=== PATIENT | male | born 1955 | race Caucasian/White ===

== ENCOUNTER → 2020-09-04 | Outpatient (CLI) | payer OTHER ==
[~2020-09-04] MED LIST: AZITHROMYCIN 2250 MG PO; CIALIS5 MG PO; PREDNISONE 20 M20 MG PO; PROAIR HFA8.5 GM INH; PROSCAR 5MG TABL5 MG PO; PROTONIX40 M1 PO; ROSUVASTATIN CA10 MG PO; VALIUM5 MG PO
== END ==
LOC: LAB 12:14
PROVIDERS: ATTEND Ophthalmology
DX: Z01.812 Encounter for preprocedural laboratory examination (principal); Z20.822 Contact with and (suspected) exposure to COVID-19

== ENCOUNTER 2020-09-07 06:04 | Day surgery (SDC) | payer OTHER ==
[~2020-09-07] VITALS: Ht 175.3 cm; Wt 77.1 kg
--- NOTE | ~2020-09-07 | O ---
[facility] [place] [address] OPERATIVE REPORT Name: BRENTON WIGGINS Room #: 150-2 [facility]..#: [id number] Admission: 09/07/20 Attend Phys: Osvaldo Lopez MD Discharge: Date of : 53 Report #: [id number] THIS REPORT FOR: cc: Aurora Rock MD, Kandice L. MD White, William L. MD ~ DATE OF SERVICE: 09/07/2020 PREOPERATIVE DIAGNOSIS: Basal cell carcinoma of the right lower lid and medial canthus. POSTOPERATIVE DIAGNOSIS: Basal cell carcinoma of the right lower lid, medial canthus and upper lid. PROCEDURE: Excision of basal cell carcinoma of the right medial canthus, right lower lid and right upper lid with frozen section, control of margins, myocutaneous flap repair of defect with full-thickness skin graft. SURGEON: Osvaldo Lopez MD. AUTOMATIC MOUNTER: None. ANESTHESIA: MAC. COMPLICATIONS: None. INDICATIONS FOR SURGERY: This pleasant 65-year-old gentleman has a biopsy proven basal cell carcinoma that is in his medial right lower lid extending up through his medial canthus. He presents today for excision of the tumor with frozen sections and subsequent reconstruction of that defect. Informed consent was obtained to include but not limited to the potential risk for loss of vision, bleeding, infection, failure to improve the problem, and the potential need for further surgery or treatment. DESCRIPTION OF PROCEDURE: The patient was taken to the operating room where 2% Xylocaine with epinephrine mixed with equal parts 0.75% Marcaine with Wydase was administered transcutaneously to the right lower lid, the right medial canthus, right upper lid, the glabella and the bridge of the nose and the right lateral upper lid. The patient was then prepped and draped in the usual sterile fashion. The lesion was inspected and an incision outlined with a fine tip skin marking pen including 2-3 mm of normal appearing tissue around the entire lesion. This took it straight through the medial canthus and extended up onto the medial aspect of the right upper lid. The incisions were then made with a 15 blade and the deeper dissection accomplished with a Kathleen scissor. The specimen was then oriented on a drawing for the waiting pathologist as [address] [address] OPERATIVE REPORT Name: BRENTON WIGGINS Room #: 150-2 [facility]..#: [id number] Admission: 09/07/20 Attend Phys: Osvaldo Lopez MD Discharge: Date of : 53 Report #: [id number] hemostasis was achieved in the field with diligent pinpoint monopolar cautery. The pathologist snap froze that tissue and found that the medial aspect of the incision was still diffusely positive. An initial excision of 2-3 mm was then made across the entire medial portion of the wound. This extended it quite a bit up on to the upper eyelid. She snap froze that tissue and while she did see additional tumor, it was not on the margin. Attention was then turned to repair the defect. The defect was much larger than what it had been anticipated preoperatively. A 2 phase correction of the defect was then planned. A myocutaneous flap was then developed laterally to correct the right lower lid and medial canthal portion of the wound. The relaxing incision was then made in the infraciliary plane and hemostasis re-achieved. The flap was then advanced and secured with interrupted Vicryl sutures deep and then 6-0 plain gut sutures more superficially. This left a considerable defect in the upper eyelid. The decision was made to correct this defect with a full-thickness skin graft from the lateral most right upper lid. That defect was then outlined in the lateral right upper lid with a fine tip skin marking pen. A 15 blade was then used to make those incisions, following which a full-thickness skin graft was then harvested utilizing thin section techniques. Hemostasis was achieved in that donor bed with monopolar cautery. It was then closed with 6-0 chromic sutures and 6-0 plain gut sutures. The full thickness skin graft was then defatted. It was then secured into its bed in the right upper lid with cardinal bites of 7-0 Vicryl sutures followed by a final closure of 6-0 plain gut sutures. The wounds were then cleaned and dressed with erythromycin ointment. Stack Telfa pads that were cut were used medially as pledgets to hold the full-thickness skin graft down. A larger Telfa pad cut in the shape of an eye pad was placed followed by 2 eye pads, which were held in place with silk tape and Mastisol. The patient was then transported to the recovery area having tolerated the procedures well with no anesthetic or operative complications being noted. By: [id number] Osvaldo Lopez MD /chuckie
[2020-09-07 07:31] VITALS: BP 119/75
--- NOTE | 2020-09-08 17:07 | PATH ---
[facility] [address] [place] [address] PATHOLOGY RPT PROCEDURE Name: BRENTON WIGGINS Room #: DEP [facility].#: [id number] Admission: 09/07/20 Date of : 53 Discharge: 09/07/20 Report #: [id number] Path Case #: [id number] [facility] Accession Number: [id number] . 01 Material submitted: . PART A: lid - RIGHT LOWER LID AND MEDIAL CANTHUS- FS. Modifiers: right, lower, MEDIAL CANTHUS PART B: canthus - ADDITIONAL SUPERIOR AND INFERIOR MEDIAL CANTHUS - FS. Modifiers: superior, inferior, medial . 01 Clinical history: . Basal cell carcinoma right lower lid . 02 Frozen section diagnosis: . FROZEN SECTION DIAGNOSES (Fior Barrett MD) . FSA1, Skin, right lower lid and medial canthus, excision: - MEDIAL CANTHUS/MEDIAL MARGIN POSITIVE. . FSB1, Additional superior and inferior medial canthus, re-excision: - Level 3 frozen section slide positive and level 1 as well as level 2 free of invasive carcinoma. . These findings are discussed with Dr. Osvaldo Lopez in OR6 and a written report is placed in the patient's chart. . Frozen section performed at [facility], [address] , [place] [address]. . . FROZEN SECTION GROSS DESCRIPTION Specimen A is received fresh from the OR labeled with the patient's name, and "right lower lid and medial canthus", consists of an oriented ellipse of skin measuring 1.5 x 0.6 x 0.3 cm. It is oriented as superior, medial, inferior and lateral. Additionally, there is a thin strip of skin present at the medial margin, detached from the ellipse measuring approximately 0.8 cm. The specimen is inked as follows: superior, medial to inferior margin is inked black, the old margin on the actual ellipse (not including the additional medial strip of skin) is not inked. The inferior half of the lateral margin is inked blue and the superior half of the lateral margin is inked green. At this point, the medial strip of skin is submitted en-face along with the remainder of the specimen which is serially sectioned and submitted from the superior to inferior end in entirety in FSA1, this is subsequently submitted for permanent sections as A1. . Specimen B is received fresh from the OR labeled with the patient's name, and "additional superior and inferior medial canthus", consists of a strip [address] [address] PATHOLOGY RPT PROCEDURE Name: BRENTON WIGGINS Room #: DEP [facility]#: [id number] Admission: 09/07/20 Date of : 53 Discharge: 09/07/20 Report #: [id number] Path Case #: [id number] of skin measuring approximately 2.6 x 0.1 x 0.1 cm. The superior end of the specimen is inked black and the inferior end is inked orange. The specimen is submitted en-face for frozen section as FSB1, this is subsequently submitted for permanent sections as B1. (IUV:syed; 09/07/2020) . . . IZV/S . 02 Diagnosis: A. Skin, right lower lid and medial canthus, excision: - BASAL CELL CARCINOMA WITH AN EXTENSIVE SUPERFICIAL COMPONENT. - No definitive perineural invasion identified. - MEDIAL MARGIN POSITIVE. - Remainder side margins and deep margin free of malignancy. . B. Skin, additional superior and inferior medial canthus, re-excision: - Reactive changes. - Negative for malignancy. (IUV:syed; 09/08/2020) S 09/08/2020 1604 Local . 02 Electronically signed: . Fior Barrett MD, Pathologist NPI- [id number] . 01 Gross description: . A. PLEASE SEE FROZEN SECTION GROSS DESCRIPTION. . B. PLEASE SEE FROZEN SECTION GROSS DESCRIPTION. /[facility] 09/07/2020 1115 Local . 02 Pathologist provided ICD-10: C44.1122 . 02 CPT . 871131, 053119, 998318, 298385 Specimen Comment: A courtesy copy of this report has been sent to [phone] Specimen Comment: [phone] Specimen Comment: Report sent to / DR MCGILL Performed at: [address], [place], [place] [id number] MD Hilario Box MD Phone: [phone] [address] [address] PATHOLOGY RPT PROCEDURE Name: BRENTON WIGGINS Room #: DEP [facility].#: [id number] Admission: 09/07/20 Date of : 53 Discharge: 09/07/20 Report #: [id number] Path Case #: [id number] Performed at: [address] [place] [id number] MD Fior Barrett MD Phone: [phone]
== END 2020-09-07 08:58 | disposition home or self-care (01) ==
LOC: OR 06:04 → TBA 06:04 → OR 08:58
PROVIDERS: ATTEND Ophthalmology
DX: C44.1122 Basal cell carcinoma of skin of right lower eyelid, including canthus (principal); E78.5 Hyperlipidemia, unspecified; K21.9 Gastro-esophageal reflux disease without esophagitis; J45.909 Unspecified asthma, uncomplicated; F17.210 Nicotine dependence, cigarettes, uncomplicated; Z98.890 Other specified postprocedural states; Z79.899 Other long term (current) drug therapy; Z98.52 Vasectomy status
CPT/HCPCS: 50010; 50101; 50386; 50398; 51636; 56531; 62110; 62850; 70005

== ENCOUNTER → 2020-10-02 | Outpatient (CLI) | payer OTHER ==
[~2020-10-02] MED LIST changes: -PROTONIX40 M1 PO; +PROTONIX40 M2 PO
== END ==
LOC: LAB 10:47
PROVIDERS: ATTEND Ophthalmology
DX: Z01.812 Encounter for preprocedural laboratory examination (principal); Z20.822 Contact with and (suspected) exposure to COVID-19

== ENCOUNTER 2020-10-05 06:20 | Day surgery (SDC) | payer OTHER ==
[~2020-10-05] VITALS: Ht 175.3 cm; Wt 77.1 kg
[2020-10-05 08:00] VITALS: BP 124/72
--- NOTE | 2020-10-09 15:07 | PATH ---
[facility] [place] [address] PATHOLOGY RPT PROCEDURE Name: BRENTON WIGGINS Room #: DEP [facility].#: [id number] Admission: 10/05/20 Date of : 53 Discharge: 10/05/20 Report #: [id number] Path Case #: [id number] [facility] Accession Number: [id number] . 01 Material submitted: . PART A: lid - LEFT LOWER LID AND MEDIAL CANTHUS- FS. Modifiers: left, lower PART B: lid - ADDITIONAL SUPERIOR, INFERIOR, MEDIAL SIDE- FS. Modifiers: superior, inferior, medial PART C: lid - ADDITIONAL SUPERIOR, INFERIOR, MEDIAL SIDE- FS. Modifiers: superior, inferior, medial . 01 Clinical history: . EXCISIONAL BASAL CELL CARCINOMA [facility] . 02 Frozen section diagnosis: . FROZEN SECTION DIAGNOSES: (Fior Barrett MD) . FSA1, Left lower lid and medial canthus, excision: - MEDIAL MARGIN POSITIVE. . FSB1, Skin, additional superior, inferior, medial side, re-excision: - POSITIVE. . FSC1, Skin, additional superior, inferior, medial side, re-excision: - Negative for invasive carcinoma. . These findings are discussed with Dr. Osvaldo Lopez in OR5 and a written report is placed in the patient's chart. . . Frozen sections performed at [facility], [address] [place] [address] , [place] [address]. . . FROZEN SECTION GROSS DESCRIPTION: A. Specimen A is received fresh from the OR labeled with the patient's name, and "left lower lid and medial canthus", consists of a 1.7 x 0.7 x 0.3 cm ellipse of skin oriented as superior, lateral, inferior and medial. The superior to lateral margin is inked black, the lateral to inferior margin is inked yellow, the inferior to medial margin is inked blue, and the medial to superior margin is inked green. The deep margin is inked black. The specimen is serially sectioned and entirely submitted for frozen section as FSA1, this is subsequently submitted for permanent sections as A1. . B. Specimen B is received fresh from the OR labeled with the patient's name, and "additional superior, inferior, medial side", consists of a thin [facility] [address] [place] [address] PATHOLOGY RPT PROCEDURE Name: BRENTON WIGGINS Room #: DEP [facility].#: [id number] Admission: 10/05/20 Date of : 53 Discharge: 10/05/20 Report #: [id number] Path Case #: [id number] strip of skin measuring 2.5 x 0.1 x 0.1 cm. It is oriented as superior to inferior. The superior margin is inked black and the inferior is inked yellow. It is submitted en face for frozen section as FSB1, this is subsequently submitted for permanent sections as B1. . C. Specimen C is received fresh from the OR labeled with the patient's name, and "additional superior, inferior, medial side", consists of a thin strip of skin measuring 2.7 x 0.2 x 0.2 cm. It is oriented as superior and inferior. The superior end is inked black and the inferior end is inked yellow. At this point, the specimen is entirely submitted en face for frozen section as FSC1, this is subsequently submitted for permanent sections as C1. (IUV:syed; 10/05/2020) . IZV/QMS . 02 Diagnosis: A. Skin, left lower lid and medial canthus, excision: - Basal cell carcinoma, widely infiltrative - Medial margin positive including the inferior tip. - Positive focally at the lateral margin, see comment. . B. Skin, additional superior inferior, medial side, excision: - Positive for malignancy; basal cell carcinoma present. . C. Skin, additional superior inferior medial side, re-excision: - Negative for malignancy on FS slides, see comment. (IUV:pit 10/06/2020) [facility] 10/06/2020 1634 Local . 02 Comment: Part A: The frozen section slides show no evidence of malignancy at the lateral margin in the slides examined. The permanent sections show tumor present focally at the lateral margin. The medial margin is widely positive as diagnosed at the time of the frozen section. The same is discussed with Dr. Osvaldo Lopez at approximately 2:20 pm on 10/06/2020. . Part C: The permanent sections of the "additional superior inferior medial side re-excision (part C) show an invasive basal cell carcinoma focally which represents the old margin since the enface margin was submitted for frozen section and has been cut through. (IUV:pit 10/06/2020) . 02 Addendum: . This addendum is issued subsequent to reviewing a properly-controlled S100 [facility] [address] [place] [address] PATHOLOGY RPT PROCEDURE Name: BRENTON WIGGINS Room #: DEP [facility]#: [id number] Admission: 10/05/20 Date of : 53 Discharge: 10/05/20 Report #: [id number] Path Case #: [id number] immunohistochemical stain performed to assess perineural invasion by the widely infiltrative basal cell carcinoma. There is no definitive perineural invasion identified in the sections examined. . The originally rendered diagnoses remain unchanged. (IUV:mml; 10/09/2020) . . Professional services performed by [facility] at [facility], [address] [place] [address], [place] [address]. Technical services performed by [facility] at [address] [place] [address], [address], [place] [address]. [facility]/10/09/2020 Addendum Electronically Signed by Fior Barrett MD, Pathologist . 02 Electronically signed: . Fior Barrett MD, Pathologist NPI- [id number] . 01 Gross description: . A. SEE GROSS DESCRIPTION UNDER FROZEN SECTION HEADING. . B. SEE GROSS DESCRIPTION UNDER FROZEN SECTION HEADING. . C. SEE GROSS DESCRIPTION UNDER FROZEN SECTION HEADING. /QMS 10/05/2020 1620 Local . 02 Pathologist provided ICD-10: C44.101 . 02 CPT . 212595, 201663, 311459, 220634, 729569, 229847, Z04188 Specimen Comment: A courtesy copy of this report has been sent to [phone] Specimen Comment: [phone] Specimen Comment: Report sent to / DR MCGILL Performed at: [address], [place] [id number] MD Hilario Box MD Phone: [phone] Performed at: [address] [id number] MD Fior Barrett MD Phone: [phone]
== END 2020-10-05 09:10 | disposition home or self-care (01) ==
LOC: OR 06:20 → TBA 06:21 → OR 08:49
PROVIDERS: ATTEND Ophthalmology
DX: C44.1192 Basal cell carcinoma of skin of left lower eyelid, including canthus (principal); E78.5 Hyperlipidemia, unspecified; J45.909 Unspecified asthma, uncomplicated; K21.9 Gastro-esophageal reflux disease without esophagitis; F17.210 Nicotine dependence, cigarettes, uncomplicated; Z98.890 Other specified postprocedural states; Z79.899 Other long term (current) drug therapy; Z98.52 Vasectomy status; Z85.828 Personal history of other malignant neoplasm of skin
CPT/HCPCS: 50010; 50101; 50386; 50398; 51636; 56531; 62110; 62850; 70005